=== PATIENT | female | born 2000 | race Caucasian/White ===

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

== ENCOUNTER 2019-11-13 21:39 | Emergency (ER) | payer MEDICAID ==
[~2019-11-13] VITALS: Ht 160 cm; Wt 97.0 kg
[2019-11-13 23:40] LABS: BASOPHILS % 0.5 % (0.0-2.0); EOSINOPHILS % 1.1 % (0.0-5.0); HEMATOCRIT. 35.8 % (36.0-48.0); HEMOGLOBIN. 12.2 g/dL (12.0-16.0); LYMPHOCYTES % 20.1 % (20.0-50.0); MEAN CORPUSCULAR HEMOGLOBIN 28.3 pg (28.0-32.0); MEAN CORPUSCULAR VOLUME 82.9 fL (81.0-99.0); MONOCYTES % 6.2 % (2.0-8.0); NEUTROPHILS % 72.1 % (40.0-76.0); PLATELET 379 x1000/uL (130-400); RED BLOOD CELL COUNT 4.31 mill/uL (4.2-5.4); RED CELL DISTRIBUTION WIDTH 14.3 % (11.6-14.6)
[2019-11-13 23:51] LABS: CHLORIDE 109 mEq/L (98-107)
[2019-11-14 00:11] LABS: B-HCG QUANTITATIVE 32181 mIU/mL (<3)
[2019-11-14 00:51] VITALS: BP 108/54
== END 2019-11-14 00:57 | disposition home or self-care (01) ==
LOC: ER 21:47
DX: O20.0 Threatened abortion (principal); Z3A.15 15 weeks gestation of pregnancy
CPT/HCPCS: 36415; 76801; 80053; 84702; 85025; 86850; 86900; 99284

== ENCOUNTER 2020-04-27 04:41 | Observation (INO) | payer MEDICAID ==
[~2020-04-27] VITALS: Ht 157.5 cm; Wt 105.7 kg
[2020-04-27] MEDS ORDERED: ASPI-1497 MT (06:33)
[2020-04-29] MEDS ORDERED: IBUP-2030 PO (08:19)
[2020-04-29] MEDS ORDERED: FERR325T23 PO (08:19)
== END 2020-04-27 07:40 | disposition home or self-care (01) ==
LOC: 8 EST LDRP 04:41
PROVIDERS: ADMIT Obstetrics & Gynecology; ATTEND Obstetrics & Gynecology
DX: O62.9 Abnormality of forces of labor, unspecified (principal); Z3A.38 38 weeks gestation of pregnancy; Z79.899 Other long term (current) drug therapy
CPT/HCPCS: 82962; 99281; G0378

== ENCOUNTER 2020-04-27 22:16 | Inpatient (IN) | payer MEDICAID ==
[~2020-04-27] VITALS: Ht 154.9 cm; Wt 105.7 kg
[~2020-04-27 22:16] MED LIST: ASPI-1497 MT
[2020-04-27] MEDS ORDERED: LACTATED RINGERS 1,000 ML IV SCH ×2 (22:43→23:48)
[2020-04-27] MEDS ORDERED: DEXT 5%/LR + PITOCIN 20UNITS/L 1,000 ML IV SCH (23:48)
[2020-04-28] MEDS ORDERED: CARBOPROST TROMETHAMINE 250 MCG/ML AMPUL IM PRN
[2020-04-28] MEDS ORDERED: METHYLERGONOVINE MALEATE 0.2 MG/ML IM PRN
[2020-04-28] MEDS ORDERED: BUTORPHANOL TARTRATE 2 MG/ML VIAL IV PRN
[2020-04-28] MEDS ORDERED: PENICILLIN G POTASSIUM 5 MMU in DEXT 5% WATER 100 ML IV NR ×2
[2020-04-28] MEDS ORDERED: MISOPROSTOL 100MCG TABLET VG PRN
[2020-04-28 00:57] LABS: BASOPHILS % 0.5 % (0.0-2.0); EOSINOPHILS % 0.8 % (0.0-5.0); HEMATOCRIT. 31.2 % (36.0-48.0); HEMOGLOBIN. 10.8 g/dL (12.0-16.0); LYMPHOCYTES % 20.1 % (20.0-50.0); MEAN CORPUSCULAR HEMOGLOBIN 25.5 pg (28.0-32.0); MEAN PLATELET VOLUME 8.2 fl (7.4-10.4); MONOCYTES % 7.9 % (2.0-8.0); NEUTROPHILS % 70.7 % (40.0-76.0); PLATELET 335 x1000/uL (130-400); RED BLOOD CELL COUNT 4.21 mill/uL (4.2-5.4); RED CELL DISTRIBUTION WIDTH 16.3 % (11.6-14.6)
[2020-04-28 01:21] LABS: *AMPHETAMINES SCREEN URINE NEGATIVE (NEGATIVE)
[2020-04-28 01:22] LABS: *BARBITURATES SCREEN URINE NEGATIVE (NEGATIVE); *BENZODIAZEPINES SCREEN URINE NEGATIVE (NEGATIVE); *COCAINE SCREEN URINE NEGATIVE (NEGATIVE); METHADONE URINE SCREEN NEGATIVE (NEGATIVE); OPIATES URINE SCREEN NEGATIVE (NEGATIVE); PHENCYCLIDINE URINE SCREEN NEGATIVE (NEGATIVE)
[2020-04-28 01:23] LABS: CANNABINOID URINE SCREEN NEGATIVE (NEGATIVE)
[2020-04-28] MEDS: BUTORPHANOL TARTRATE 2 MG/ML VIAL IV PRN ×3 (01:29→05:41)
[2020-04-28 02:12] LABS: HEPATITIS B SURFACE ANTIGEN NEGATIVE
[2020-04-28] MEDS ORDERED: FENTANYL CITRATE/PF 50MCG/ML 2ML VIAL ONE (03:59)
[2020-04-28] MEDS ORDERED: PENICILLIN G POTASSIUM 2.5 MMU in DEXTROSE 5% WATER 50 ML IV SCH (04:00)
[2020-04-28] MEDS ORDERED: CEFAZOLIN SODIUM 1000MG/VIAL ONE (04:00)
[2020-04-28] MEDS ORDERED: EPHEDRINE SULFATE 50MG/ML VIAL ONE (04:00)
[2020-04-28] MEDS ORDERED: ROPIVACAINE HCL/PF 0.2% (2MG/ML) EPID 200ML EPI NR (04:00)
[2020-04-28] MEDS ORDERED: LIDOCAINE HCL 1% 20ML VIAL (Pyxis) INJ INFIL SCH ×2 (05:15)
[2020-04-28] MEDS ORDERED: DEXT 5%/LR + PITOCIN 20UNITS/L 1,000 ML IV SCH (06:16)
[2020-04-28] MEDS ORDERED: GLYCERIN/WITCH HAZEL LEAF MEDICATED PAD TOP PRN (06:30)
[2020-04-28] MEDS ORDERED: LANOLIN OINT 7GM TUBE TOP PRN (06:30)
[2020-04-28] MEDS ORDERED: OXYCODONE HCL/ACETAMINOPHEN 5/325MG TABLET PO PRN (06:30)
[2020-04-28] MEDS ORDERED: HEMORRHOIDAL SUPP PR PRN (06:30)
[2020-04-28] MEDS ORDERED: BISACODYL 10MG SUPP PR PRN (06:30)
[2020-04-28] MEDS ORDERED: DIPHENHYDRAMINE 25MG CAPSULE PO PRN (06:30)
[2020-04-28] MEDS ORDERED: BENZOCAINE/LANOLIN/ALOE VERA SPRAY TOP PRN (06:30)
[2020-04-28] MEDS ORDERED: IBUPROFEN 400MG TABLET PO PRN (06:30)
[2020-04-28 07:43] LABS: HEMATOCRIT. 27.6 % (36.0-48.0); HEMOGLOBIN. 9.1 g/dL (12.0-16.0); MEAN CORPUSCULAR HEMOGLOBIN 24.5 pg (28.0-32.0); MEAN CORPUSCULAR VOLUME 74.4 fL (81.0-99.0); MEAN PLATELET VOLUME 8.1 fl (7.4-10.4); PLATELET 306 x1000/uL (130-400); RED BLOOD CELL COUNT 3.72 mill/uL (4.2-5.4); RED CELL DISTRIBUTION WIDTH 15.9 % (11.6-14.6)
[2020-04-28 07:50] LABS: PROTHROMBIN TIME 10.1 sec (9.6-11.0)
[2020-04-28 08:50] VITALS: BP 116/72
[2020-04-28] MEDS: IBUPROFEN 800MG TABLET PO PRN (12:45)
[2020-04-28] MEDS: PRENATAL VIT/FE FUMARATE/FA TABLET PO SCH (12:45)
[2020-04-28 13:05] LABS: PLATELET ESTIMATE NORMAL
[2020-04-28 16:15] VITALS: BP 110/65
[2020-04-28 19:20] VITALS: BP 126/68
[2020-04-28] MEDS ORDERED: DOCUSATE SODIUM 100MG CAPSULE PO SCH (21:00)
[2020-04-28 23:45] VITALS: BP 125/67
[2020-04-29] MEDS ORDERED: FERROUS SULFATE 325MG TABLET PO SCH (07:30)
[2020-04-29 07:31] VITALS: BP 100/51
[2020-04-29] MEDS: PRENATAL VIT/FE FUMARATE/FA TABLET PO SCH (08:11)
[2020-04-29] MEDS: IBUPROFEN 800MG TABLET PO PRN (08:11)
[2020-04-29] MEDS ORDERED: IBUP-2030 PO (08:19)
[2020-04-29] MEDS ORDERED: FERR325T23 PO (08:19)
== END 2020-04-29 12:00 | disposition home or self-care (01) | DRG 560 ==
LOC: OBSVTOIN 22:16 → 8 EST LDRP 22:16 → 8 EST A/PP 04-28 08:22 → 8EST 04-28 08:45
PROVIDERS: ADMIT Specialist; ATTEND Specialist
PROC: 10E0XZZ Delivery of Products of Conception, External Approach (ICD-10-PCS; principal; 2020-04-28)
PROC: 0W8NXZZ Division of Female Perineum, External Approach (ICD-10-PCS; 2020-04-28)
PROC: 0KQM0ZZ Repair Perineum Muscle, Open Approach (ICD-10-PCS; 2020-04-28)
DX: O24.429 Gestational diabetes mellitus in childbirth, unspecified control (principal); E66.9 Obesity, unspecified; D64.9 Anemia, unspecified; O99.02 Anemia complicating childbirth; O99.214 Obesity complicating childbirth; Z37.0 Single live birth; O70.1 Second degree perineal laceration during delivery; Z3A.38 38 weeks gestation of pregnancy
CPT/HCPCS: 36415; 80305; 85025; 86592; 86703; 86762; 86850; 86900; 87340; 99281; J0595; J0690; J2540; J2590; J3010; J3490; J7060; J7120

== ENCOUNTER 2021-05-28 00:57 | Emergency (ER) | payer MEDICAID ==
[~2021-05-28] VITALS: Ht 160 cm; Wt 109.0 kg
[~2021-05-28 00:57] MED LIST changes: -ASPI-1497 MT; +FERR325T23 PO; +IBUP-2030 PO
[2021-05-28 01:13] VITALS: BP 163/102
== END 2021-05-28 05:03 | disposition left against medical advice (07) ==
LOC: ER 01:23
DX: Z53.21 Procedure and treatment not carried out due to patient leaving prior to being seen by health care provider (principal); I49.9 Cardiac arrhythmia, unspecified
CPT/HCPCS: 93005